=== PATIENT | male | born 1980 | race Two or more races ===

== ENCOUNTER 2019-10-10 20:14 | Emergency (ER) | payer BC ==
[2019-10-10 20:30] VITALS: BP 178/97
[2019-10-10] MEDS ORDERED: OSEL75CA PO (20:40)
--- NOTE | 2019-10-10 20:41 | PHYS DOC ---
Past Medical History Alcohol Use: Occasionally Adult General Chief Complaint Chief Complaint: FLU SYMPTOM HPI HPI Patient is a 39 year old male who presents to the ED today complaining of fevers, body aches, chills, symptoms began 2 days ago after he got exposed to influenza A from the significant other. Review of Systems Review of Systems Constitutional: Reports fever, body aches, chills Eyes: Denies change in visual acuity, redness, or eye pain [] HENT: Denies nasal congestion or sore throat [] Respiratory: Denies cough or shortness of breath [] Cardiovascular: No additional information not addressed in HPI [] GI: Denies abdominal pain, nausea, vomiting, bloody stools or diarrhea [] : Denies dysuria or hematuria [] Musculoskeletal: Denies back pain or joint pain [] Integument: Denies rash or skin lesions [] Neurologic: Denies headache, focal weakness or sensory changes [] All other systems were reviewed and found to be within normal limits, except as documented in this note. Physical Exam Physical Exam Constitutional: Well developed, well nourished, no acute distress, non-toxic appearance. [] HENT: Normocephalic, atraumatic, bilateral external ears normal, oropharynx moist, no oral exudates, nose normal. [] Eyes: PERRLA, EOMI, conjunctiva normal, no discharge. [] Neck: Normal range of motion, no tenderness, supple, no stridor. [] Cardiovascular:Heart rate regular rhythm, no murmur [] Lungs & Thorax: Bilateral breath sounds clear to auscultation [] Abdomen: Bowel sounds normal, soft, no tenderness, no masses, no pulsatile masses. [] Skin: Warm, dry, no erythema, no rash. [] Back: No tenderness, no CVA tenderness. [] Extremities: No tenderness, no cyanosis, no clubbing, ROM intact, no edema. [] Neurologic: Alert and oriented X 3, normal motor function, normal sensory function, no focal deficits noted. [] Psychologic: Affect normal, judgement normal, mood normal. [] Current Patient Data Vital Signs Vital Signs Date Time Temp Pulse Resp B/P (MAP) Pulse Ox O2 Delivery O2 Flow Rate FiO2 10/10/19 20:30 100.9 115 14 178/97 (124) 100 Room Air 100.9 EKG EKG [] Radiology/Procedures Radiology/Procedures [] Course & Med Decision Making Course & Med Decision Making Pertinent Labs and Imaging studies reviewed. (See chart for details) This is a 39-year-old male patient presenting to the ED today with flulike symptoms including fever, body aches, chills, symptoms began yesterday after being exposed to influenza A. Temperature 100.9 on arrival. Given Tylenol in the ED and discharged with Tamiflu. Instructed to take Tylenol/Motrin for pain or fever. Instructed push fluids rest and maintain good hand hygiene. Follow-up with primary care doctor in 1-2 weeks. Dragon Disclaimer Dragon Disclaimer This electronic medical record was generated, in whole or in part, using a voice recognition dictation system. Departure Departure Impression: Primary Impression: Fever Additional Impression: Viral illness Disposition: 01 HOME, SELF-CARE Condition: STABLE Referrals: SERGIO SANTILLAN MD (PCP) follow up with your doctor in the next 1-2 weeks. Patient Instructions: Influenza Facts Additional Instructions: You were evaluated in the emergency room with symptoms suspicious of a viral illness. We wrote a prescription for Tamiflu which will cover you for Influenza. Take the medication as prescribed until completed. Please take Tylenol/Motrin for pain or fever. Push fluids, rest, maintain good hand hygiene and follow-up with your doctor in 1-2 weeks Scripts Oseltamivir Phosphate (TAMIFLU) 75 Mg Capsule 1 CAP PO BID, #10 CAP Prov: BRANDYN PALACIO APRN 10/10/19 Problem Qualifiers Primary Impression: Fever Fever type: unspecified Qualified Codes: R50.9 - Fever, unspecified BRANDYN PALACIO [employer] Oct 10, 2019 20:41
== END 2019-10-10 20:55 | disposition home or self-care (01) ==
LOC: ER 20:14
DX: B34.9 Viral infection, unspecified (principal)
CPT/HCPCS: 99283